=== PATIENT | male | born 1985 | race Caucasian/White ===

== ENCOUNTER 2024-08-28 21:23 | Observation (INO) | payer SELFPAY ==
[2024-08-28] MEDS ORDERED: Morphine 4 MG/ML VIAL ONE ×2 (21:43→23:41)
[2024-08-28] MEDS ORDERED: Ketorolac Tromethamine 30 MG (1 mL) VIAL ONE (21:43)
[2024-08-28] MEDS ORDERED: Ondansetron PF 4 MG/2 ML Vial ONE (21:43)
[2024-08-28 22:05] LABS: #Basophils 0.07 10x3/uL (0.0-0.2); %Basophils 0.4 % (0.0-1.0); %Eosinophils 0.9 % (0.0-10.0); %Monocytes 8.5 % (0.0-10.0); %Neutrophils 75.8 % (42.0-75.0); Hematocrit 45.1 % (42.0-52.0); Mean Corpuscular HGB CONC 35.5 g/dL (32.0-36.0); Mean Corpuscular Hemoglobin 30.7 pg (27.0-31.0); Mean Corpuscular Volume 86.6 fL (78.0-98.0); Platelet Count 338 10x3/uL (130-400); RBC Distribution Width 12.8 % (11.5-14.5); Red Blood Cell (RBC) Count 5.21 mill/uL (4.70-6.10)
[2024-08-28 22:44] LABS: ALT (SGPT) 22 U/L (8-55); AST (SGOT) 18 U/L (5-34); Albumin 4.3 g/dL (3.5-5.0); Alkaline Phosphatase 96 U/L (40-110); Anion Gap 19 mmol/L (10-20); BUN (Urea Nitrogen) 16 mg/dL (8.9-20.6); Bilirubin, Total 0.4 mg/dL (0.2-1.2); Calcium 9.1 mg/dL (7.8-10.44); Carbon Dioxide 18 mmol/L (22-29); Chloride 106 mmol/L (98-107); Globulin 2.6 g/dL (2.4-3.5); Glucose 111 mg/dL (70-105); Lipase 18 U/L (8-78); Potassium 3.6 mmol/L (3.5-5.1); Protein, Total 6.9 g/dL (6.0-8.3); Sodium 139 mmol/L (136-145)
[2024-08-28 22:51] LABS: Bacteria/HPF 1+ HPF (None Seen); Bilirubin Negative (Negative); Blood, Urine 3+ (Negative); CAUTI Indications for Culture Dysuria,urgency,freq; Clarity Extra Turbid (Clear); Glucose, Urine (Dipstick) Normal (Negative); Ketone, Urine 60 mg/dL (Negative); Leukocyte 25 Leu/uL (Negative); Nitrite Negative (Negative); Protein, Urine (Dipstick) 50 mg/dL (Neg-Trace); RBC/HPF Greater than 50 HPF (0-3); Specific Gravity, Urine 1.024 (1.002-1.036); Squamous Epithelial None Seen HPF (0-3); Urobilinogen 3 mg/dL (Less than 2); WBC/HPF Greater than 50 HPF (0-3); pH, Urine 7.5 (5.0-9.0)
[2024-08-28 22:52] LABS: Urine Culture Reflex Yes Yes
[2024-08-28 22:59] LABS: Calc. Creatinine Clearance 0 mL/min (70-130); Estimated GFR 80
[2024-08-28] MEDS ORDERED: Sodium Chloride 0.9% 100 ML ONE (23:41)
[2024-08-28] MEDS ORDERED: cefTRIAXone (ROCEPHIN) 1 GM VIAL ONE (23:41)
[2024-08-29] MEDS ORDERED: Morphine 4 MG/ML VIAL ONE (01:58)
[2024-08-29 03:08] VITALS: BMI 23.6
[2024-08-29] MEDS ORDERED: Acetaminophen 325 MG TAB PO PRN (04:02)
[2024-08-29] MEDS ORDERED: Ondansetron PF 4 MG/2 ML Vial IVP PRN (04:02)
[2024-08-29] MEDS: Ketorolac Tromethamine 30 MG (1 mL) VIAL IVP PRN (05:49)
[2024-08-29 05:58] LABS: #Basophils 0.03 10x3/uL (0.0-0.2); %Basophils 0.2 % (0.0-1.0); %Eosinophils 0.9 % (0.0-10.0); %Lymphocytes 16.1 % (21.0-51.0); %Monocytes 9.8 % (0.0-10.0); %Neutrophils 72.6 % (42.0-75.0); Hemoglobin 14.5 g/dL (14.0-18.0); Mean Corpuscular HGB CONC 33.7 g/dL (32.0-36.0); Mean Corpuscular Hemoglobin 30.3 pg (27.0-31.0); Mean Platelet Volume 9.2 fL (7.4-10.4); Platelet Count 304 10x3/uL (130-400); RBC Distribution Width 12.9 % (11.5-14.5); Red Blood Cell (RBC) Count 4.78 mill/uL (4.70-6.10)
[2024-08-29] MEDS: Morphine 4 MG/ML VIAL ONE (06:08)
[2024-08-29 06:10] LABS: Anion Gap 15 mmol/L (10-20); BUN (Urea Nitrogen) 16 mg/dL (8.9-20.6); Calc. Creatinine Clearance 98 mL/min (70-130); Calcium 8.5 mg/dL (7.8-10.44); Carbon Dioxide 20 mmol/L (22-29); Chloride 108 mmol/L (98-107); Estimated GFR 86; Glucose 96 mg/dL (70-105); Potassium 4.5 mmol/L (3.5-5.1); Sodium 138 mmol/L (136-145)
[2024-08-29] MEDS: Morphine 4 MG/ML VIAL SLOW IVP SCH (06:11)
[2024-08-29] MEDS: Sodium Chloride 0.9% 1,000 ML IV SCH ×2 (07:58→12:49)
[2024-08-29] MEDS ORDERED: fentaNYL 50 mcg/mL 1 mL Vial ONE ×2 (09:22→10:39)
[2024-08-29] MEDS ORDERED: fentaNYL PF 100 MCG/2 ML SYRINGE ONE (09:39)
[2024-08-29] MEDS ORDERED: Lidocaine 2% PF 5 ML VIAL ONE (09:39)
[2024-08-29] MEDS ORDERED: PROPOFOL 20 ML ONE (09:39)
[2024-08-29] MEDS ORDERED: Dexamethasone 20 MG/5 ML VIAL ONE (09:43)
[2024-08-29] MEDS ORDERED: Ondansetron PF 4 MG/2 ML Vial ONE (09:43)
[2024-08-29] MEDS ORDERED: SUCCINYLCHOLINE/SOD CL,ISO/PF 200 MG/10 ML SYRINGE FS ONE (09:43)
[2024-08-29] MEDS ORDERED: Glycopyrrolate 0.2 MG/ML 5 ML SYRINGE ONE (09:51)
[2024-08-29] MEDS ORDERED: Iopamidol 15 ML ONE (10:35)
[2024-08-29 10:58] VITALS: TEMP 97.2
[2024-08-29 16:48] VITALS: BP 131/78
[2024-08-29] MEDS ORDERED: cefTRIAXone\\ROCEPHIN 1 GM in Sodium Chloride 0.9% 100 ML IVPB SCH (21:00)
== END 2024-08-29 18:29 | disposition home or self-care (01) ==
LOC: ERS 21:23 → T4-A 08-29 01:49
PROVIDERS: ADMIT Internal Medicine; ATTEND Internal Medicine
PROC: 0T768DZ Dilation of Right Ureter with Intraluminal Device, Via Natural or Artificial Opening Endoscopic (ICD-10-PCS; principal; 2024-08-29)
DX: N20.1 Calculus of ureter (principal); N39.0 Urinary tract infection, site not specified; Z91.018 Allergy to other foods; F17.210 Nicotine dependence, cigarettes, uncomplicated
CPT/HCPCS: 36415; 74176; 80048; 80053; 81001; 83605; 83690; 85025; 87040; 87086; 96365; 96366; 96375; 96376; C2617; G0378; J0696; J1100; J1885; J2270; J2405; J2704; J3010; J7030; Q9967

== ENCOUNTER 2024-09-08 12:18 | Outpatient (CLI) | payer SELFPAY ==
[2024-09-08 13:38] LABS: Bilirubin Negative (Negative); Blood, Urine 3+ (Negative); Clarity Extra Turbid (Clear); Glucose, Urine (Dipstick) Normal (Negative); Ketone, Urine Negative (Negative); Leukocyte 500 Leu/uL (Negative); Nitrite Negative (Negative); Protein, Urine (Dipstick) 100 mg/dL (Neg-Trace); RBC/HPF Greater than 50 HPF (0-3); Specific Gravity, Urine 1.017 (1.002-1.036); Squamous Epithelial None Seen HPF (0-3); Urobilinogen Normal mg/dL (Less than 2); WBC/HPF Greater than 50 HPF (0-3)
[2024-09-08 13:39] LABS: Bacteria/HPF 1+ HPF (None Seen)
== END 2024-09-08 12:19 | disposition home or self-care (01) ==
LOC: LABBT 12:18
PROVIDERS: ATTEND Urology
DX: Z01.818 Encounter for other preprocedural examination (principal); N20.1 Calculus of ureter
CPT/HCPCS: 81001; 87086

== ENCOUNTER 2024-09-21 06:42 | Day surgery (SDC) | payer BC, SELFPAY ==
[2024-09-08 12:53] VITALS: BMI 25.3
[2024-09-21] MEDS ORDERED: Midazolam HCl 2 mg/2 ml Vial ONE ×2 (08:12→08:55)
[2024-09-21] MEDS ORDERED: fentaNYL PF 100 MCG/2 ML SYRINGE ONE (08:12)
[2024-09-21] MEDS ORDERED: PROPOFOL 20 ML ONE (08:12)
[2024-09-21] MEDS ORDERED: Sodium Chloride 0.9% 100 ML ONE (08:17)
[2024-09-21] MEDS ORDERED: cefTRIAXone (ROCEPHIN) 1 GM VIAL ONE (08:17)
[2024-09-21] MEDS ORDERED: Iopamidol 15 ML ONE (08:34)
[2024-09-21] MEDS ORDERED: Phenazopyridine HCl 100 MG TAB ONE (10:14)
[2024-09-21] MEDS ORDERED: Oxybutynin 5 MG TAB ONE (10:15)
[2024-09-21] MEDS ORDERED: Ondansetron PF 4 MG/2 ML Vial ONE (11:10)
[2024-09-21] MEDS ORDERED: Dexamethasone 4 mg/ml Vial ONE (11:10)
[2024-09-21] MEDS ORDERED: Lidocaine 1% PF 5 ML VIAL ONE (11:14)
[2024-09-21] MEDS ORDERED: Ketorolac Tromethamine 30 MG (1 mL) VIAL ONE (11:14)
[2024-09-26 20:07] LABS: CA Oxalate Dihydrate 90 % (.); Color Tan (.); Stone Weight 20 mg (.)
== END 2024-09-21 11:46 | disposition home or self-care (01) ==
LOC: SDC 06:42
PROVIDERS: ATTEND Urology
PROC: 0TC08ZZ Extirpation of Matter from Right Kidney, Via Natural or Artificial Opening Endoscopic (ICD-10-PCS; principal; 2024-09-21)
PROC: 0T768DZ Dilation of Right Ureter with Intraluminal Device, Via Natural or Artificial Opening Endoscopic (ICD-10-PCS; principal; 2024-09-21)
DX: N13.2 Hydronephrosis with renal and ureteral calculous obstruction (principal); N39.0 Urinary tract infection, site not specified; N12 Tubulo-interstitial nephritis, not specified as acute or chronic
CPT/HCPCS: 82365; 88300; C1747; C1894; C2617; J0696; J1100; J1885; J2250; J2405; J2704; Q9967